=== PATIENT | male | born 1950 | race African-American/Black ===

== ENCOUNTER 2019-10-27 11:08 | Inpatient (IN) | payer MEDICARE, OTHER ==
[~2019-10-27] VITALS: Ht 177.8 cm; Wt 73.2 kg
[2019-10-27 12:50] LABS: BASOPHILS % 0.6 % (0.0-2.0); EOSINOPHILS % 1.2 % (0.0-5.0); HEMATOCRIT. 39.7 % (42.0-52.0); HEMOGLOBIN. 13.9 g/dL (14.0-18.0); LYMPHOCYTES % 22.3 % (20.0-50.0); MEAN CORPUSCULAR HEMOGLOBIN 28.3 pg (28.0-32.0); MEAN CORPUSCULAR VOLUME 80.9 fL (80.0-94.0); MEAN PLATELET VOLUME 7.4 fl (7.4-10.4); MONOCYTES % 7.1 % (2.0-8.0); NEUTROPHILS % 68.8 % (40.0-76.0); PLATELET 315 x1000/uL (130-400); RED CELL DISTRIBUTION WIDTH 13.9 % (11.6-14.6)
[2019-10-27 12:56] LABS: CHLORIDE 103 mEq/L (98-107)
[2019-10-28] MEDS ORDERED: ALBUTEROL (0.083%) 2.5MG/3ML NEB HHN STA (10:20)
[2019-10-28] MEDS ORDERED: METHYLPREDNISOLONE SOD SUCC 125 MG/2 ML VIAL IV STA (10:20)
[2019-10-28 13:30] VITALS: BP 118/83
[2019-10-28] MEDS ORDERED: ONDANSETRON HCL 4MG/2ML INJ IV PRN (15:45)
[2019-10-28] MEDS ORDERED: MAGNESIUM/ALUMINUM HYDROXIDE/SIMETHICONE 30ML UDC PO PRN (15:45)
[2019-10-28] MEDS ORDERED: LORAZEPAM 2MG/ML CPJ IV PRN (15:45)
[2019-10-28] MEDS ORDERED: IPRATROPIUM/ALBUTEROL 0.5-3(2.5)MG/3ML NEB NEB PRN (15:45)
[2019-10-28] MEDS ORDERED: ACETAMINOPHEN 325MG TABLET PO PRN (15:45)
[2019-10-28] MEDS ORDERED: DIPHENHYDRAMINE 50MG/ML VIAL IV PRN (15:45)
[2019-10-28] MEDS ORDERED: CLONIDINE 0.1MG TABLET PO PRN (15:45)
[2019-10-28 16:13] VITALS: BP 139/54
[2019-10-28 20:00] VITALS: BP 144/92
[2019-10-28] MEDS: SODIUM CHLORIDE 0.9% INJ 3ML FLUSH IVF SCH (21:23)
[2019-10-29] VITALS: BP_SYST 152; BP_SYST 160; BP_DIAS 96; BP_DIAS 98
[2019-10-29 04:00] VITALS: BP 156/87
[2019-10-29 06:16] LABS: BASOPHILS % 0.7 % (0.0-2.0); EOSINOPHILS % 0.6 % (0.0-5.0); HEMATOCRIT. 40.4 % (42.0-52.0); LYMPHOCYTES % 20.3 % (20.0-50.0); MEAN CORPUSCULAR HEMOGLOBIN 27.9 pg (28.0-32.0); MEAN CORPUSCULAR VOLUME 80.4 fL (80.0-94.0); MEAN PLATELET VOLUME 7.7 fl (7.4-10.4); MONOCYTES % 6.7 % (2.0-8.0); NEUTROPHILS % 71.7 % (40.0-76.0); PLATELET 320 x1000/uL (130-400); RED BLOOD CELL COUNT 5.03 mill/uL (4.7-6.1); RED CELL DISTRIBUTION WIDTH 13.7 % (11.6-14.6)
[2019-10-29] MEDS: SODIUM CHLORIDE 0.9% INJ 3ML FLUSH IVF SCH ×3 (06:36→21:46)
[2019-10-29 06:48] LABS: VITAMIN B12 SERUM 1001 pg/mL (211-911)
[2019-10-29 08:00] VITALS: BP 116/76
[2019-10-29 13:06] LABS: CHLORIDE 99 mEq/L (98-107)
[2019-10-29 18:52] VITALS: BP 130/82
[2019-10-29 20:00] VITALS: BP 134/83
[2019-10-30] VITALS: BP 114/75
[2019-10-30 04:00] VITALS: BP 110/70
[2019-10-30] MEDS: SODIUM CHLORIDE 0.9% INJ 3ML FLUSH IVF SCH ×3 (05:03→21:02)
[2019-10-30 10:47] VITALS: BP 129/75
[2019-10-30 12:00] VITALS: BP 125/79
[2019-10-30 16:00] VITALS: BP 131/83
[2019-10-30] MEDS ORDERED: LORAZEPAM 0.5MG TABLET PO PRN (16:45)
[2019-10-30] MEDS: QUETIAPINE FUMARATE 50MG TABLET PO SCH (17:05)
[2019-10-30 20:00] VITALS: BP 144/89
[2019-10-31] VITALS: BP 134/96
[2019-10-31] MEDS: SODIUM CHLORIDE 0.9% INJ 3ML FLUSH IVF SCH ×3 (03:15→22:00)
[2019-10-31] MEDS: QUETIAPINE FUMARATE 50MG TABLET PO SCH ×2 (10:17→22:20)
[2019-10-31 20:00] VITALS: BP 114/77
[2019-11-01] VITALS: BP 107/71
[2019-11-01 04:00] VITALS: BP 109/70
[2019-11-01 08:00] VITALS: BP 118/75
[2019-11-01] MEDS: QUETIAPINE FUMARATE 50MG TABLET PO SCH ×2 (10:05→22:11)
[2019-11-01 12:00] VITALS: BP 122/76
[2019-11-01] MEDS: SODIUM CHLORIDE 0.9% INJ 3ML FLUSH IVF SCH ×2 (14:00→22:00)
[2019-11-01 16:00] VITALS: BP 109/73
[2019-11-01 20:00] VITALS: BP 125/80
[2019-11-02 00:18] VITALS: BP_SYST 110; BP_SYST 178; BP_DIAS 66; BP_DIAS 90
[2019-11-02] MEDS: SODIUM CHLORIDE 0.9% INJ 3ML FLUSH IVF SCH ×3 (01:54→22:00)
[2019-11-02 04:00] VITALS: BP 105/63
[2019-11-02 08:00] VITALS: BP 132/77
[2019-11-02] MEDS: QUETIAPINE FUMARATE 50MG TABLET PO SCH ×2 (08:52→20:17)
[2019-11-02 12:00] VITALS: BP 105/68
[2019-11-02 16:00] VITALS: BP 117/70
[2019-11-02 20:00] VITALS: BP 142/94
[2019-11-03] VITALS: BP 119/85
[2019-11-03 04:00] VITALS: BP 144/94
[2019-11-03] MEDS: SODIUM CHLORIDE 0.9% INJ 3ML FLUSH IVF SCH ×3 (05:08→22:00)
[2019-11-03 08:00] VITALS: BP 132/79
[2019-11-03] MEDS: QUETIAPINE FUMARATE 50MG TABLET PO SCH ×2 (09:17→20:24)
[2019-11-03 12:00] VITALS: BP 129/70
[2019-11-03 16:00] VITALS: BP 122/70
[2019-11-04] VITALS: BP 139/73
[2019-11-04] MEDS: SODIUM CHLORIDE 0.9% INJ 3ML FLUSH IVF SCH ×3 (06:00→22:00)
[2019-11-04] MEDS: QUETIAPINE FUMARATE 50MG TABLET PO SCH ×2 (08:56→21:45)
[2019-11-04 12:00] VITALS: BP 132/88
[2019-11-05] VITALS: BP 125/73
[2019-11-05 04:00] VITALS: BP 121/72
[2019-11-05] MEDS: SODIUM CHLORIDE 0.9% INJ 3ML FLUSH IVF SCH ×3 (06:00→14:05)
[2019-11-05 08:00] VITALS: BP_SYST 122; BP_SYST 134; BP_DIAS 81; BP_DIAS 90
[2019-11-05] MEDS: QUETIAPINE FUMARATE 50MG TABLET PO SCH ×2 (09:42→22:38)
[2019-11-05 12:00] VITALS: BP 122/81
[2019-11-05 16:00] VITALS: BP 116/79
[2019-11-05 20:00] VITALS: BP 133/69
[2019-11-06] VITALS: BP 116/82
[2019-11-06 04:00] VITALS: BP 122/76
[2019-11-06 08:00] VITALS: BP 120/86
[2019-11-06] MEDS: QUETIAPINE FUMARATE 50MG TABLET PO SCH ×2 (08:09→20:36)
[2019-11-06 12:00] VITALS: BP 129/77
[2019-11-06 16:00] VITALS: BP 116/73
[2019-11-06 20:00] VITALS: BP 132/85
[2019-11-06] MEDS: SODIUM CHLORIDE 0.9% INJ 3ML FLUSH IVF SCH (22:04)
[2019-11-07] VITALS: BP 136/81
[2019-11-07 04:00] VITALS: BP 128/86
[2019-11-07] MEDS: SODIUM CHLORIDE 0.9% INJ 3ML FLUSH IVF SCH ×3 (05:28→22:00)
[2019-11-07 08:00] VITALS: BP 140/92
[2019-11-07] MEDS: QUETIAPINE FUMARATE 50MG TABLET PO SCH ×2 (08:00→20:14)
[2019-11-07 12:00] VITALS: BP 125/87
[2019-11-07 16:00] VITALS: BP 137/88
[2019-11-07 20:00] VITALS: BP 151/89
[2019-11-08] VITALS: BP 141/71
[2019-11-08 04:00] VITALS: BP 153/81
[2019-11-08] MEDS: SODIUM CHLORIDE 0.9% INJ 3ML FLUSH IVF SCH ×3 (06:00→22:00)
[2019-11-08 08:00] VITALS: BP 135/67
[2019-11-08] MEDS: QUETIAPINE FUMARATE 50MG TABLET PO SCH ×2 (08:32→21:15)
[2019-11-08 12:00] VITALS: BP 130/65
[2019-11-08 20:00] VITALS: BP 165/87
[2019-11-09] VITALS: BP 121/69
[2019-11-09 04:00] VITALS: BP 134/93
[2019-11-09] MEDS: SODIUM CHLORIDE 0.9% INJ 3ML FLUSH IVF SCH ×3 (06:00→21:18)
[2019-11-09 08:00] VITALS: BP 112/70
[2019-11-09] MEDS: QUETIAPINE FUMARATE 50MG TABLET PO SCH ×2 (08:01→21:17)
[2019-11-09 12:00] VITALS: BP 127/82
[2019-11-09 16:00] VITALS: BP 123/83
[2019-11-09 20:00] VITALS: BP_SYST 120; BP_SYST 139; BP_DIAS 69; BP_DIAS 93
[2019-11-10] VITALS: BP 125/79
[2019-11-10 04:00] VITALS: BP 106/72
[2019-11-10] MEDS: SODIUM CHLORIDE 0.9% INJ 3ML FLUSH IVF SCH ×3 (06:00→22:00)
[2019-11-10 08:00] VITALS: BP 136/88
[2019-11-10] MEDS: QUETIAPINE FUMARATE 50MG TABLET PO SCH ×2 (09:00→21:21)
[2019-11-10 12:00] VITALS: BP 126/88
[2019-11-10 16:00] VITALS: BP 125/83
[2019-11-10 20:00] VITALS: BP 131/88
[2019-11-11] MEDS: SODIUM CHLORIDE 0.9% INJ 3ML FLUSH IVF SCH ×3 (06:26→21:27)
[2019-11-11 08:00] VITALS: BP 135/98
[2019-11-11] MEDS: QUETIAPINE FUMARATE 50MG TABLET PO SCH ×2 (08:45→21:26)
[2019-11-11 12:00] VITALS: BP 128/86
[2019-11-11 12:57] LABS: BASOPHILS % 0.9 % (0.0-2.0); EOSINOPHILS % 2.9 % (0.0-5.0); HEMATOCRIT. 41.5 % (42.0-52.0); HEMOGLOBIN. 14.3 g/dL (14.0-18.0); LYMPHOCYTES % 30.9 % (20.0-50.0); MEAN CORPUSCULAR VOLUME 81.6 fL (80.0-94.0); MEAN PLATELET VOLUME 7.5 fl (7.4-10.4); MONOCYTES % 8.9 % (2.0-8.0); NEUTROPHILS % 56.4 % (40.0-76.0); PLATELET 223 x1000/uL (130-400); RED BLOOD CELL COUNT 5.09 mill/uL (4.7-6.1); RED CELL DISTRIBUTION WIDTH 13.6 % (11.6-14.6)
[2019-11-11 13:07] LABS: CHLORIDE 100 mEq/L (98-107)
[2019-11-11 13:16] LABS: PHOSPHORUS 3.1 mg/dL (2.5-4.9)
[2019-11-11 16:00] VITALS: BP 130/88
[2019-11-11 20:00] VITALS: BP 131/85
[2019-11-12] VITALS: BP 122/66
[2019-11-12] MEDS: SODIUM CHLORIDE 0.9% INJ 3ML FLUSH IVF SCH (05:17)
[2019-11-12] MEDS: QUETIAPINE FUMARATE 50MG TABLET PO SCH ×2 (09:54→20:08)
[2019-11-12 20:00] VITALS: BP 130/85
[2019-11-13] VITALS: BP 118/72
[2019-11-13 04:00] VITALS: BP 118/74
[2019-11-13 08:00] VITALS: BP 116/81
[2019-11-13] MEDS: QUETIAPINE FUMARATE 50MG TABLET PO SCH ×2 (08:41→20:37)
[2019-11-13 12:00] VITALS: BP 117/80
[2019-11-13 16:00] VITALS: BP 130/81
[2019-11-13 20:00] VITALS: BP 138/83
[2019-11-14] VITALS: BP 130/87
[2019-11-14 04:00] VITALS: BP 103/53
[2019-11-14 08:00] VITALS: BP 131/82
[2019-11-14] MEDS: QUETIAPINE FUMARATE 50MG TABLET PO SCH ×2 (08:06→21:02)
[2019-11-14 12:00] VITALS: BP 88/56
[2019-11-14 16:00] VITALS: BP 120/72
[2019-11-14 20:00] VITALS: BP 133/85
[2019-11-14] MEDS: SODIUM CHLORIDE 0.9% INJ 3ML FLUSH IVF SCH (21:02)
[2019-11-15] VITALS: BP 126/80
[2019-11-15 04:00] VITALS: BP 119/72
[2019-11-15] MEDS: SODIUM CHLORIDE 0.9% INJ 3ML FLUSH IVF SCH (05:14)
[2019-11-15 08:00] VITALS: BP 117/74
[2019-11-15] MEDS: QUETIAPINE FUMARATE 50MG TABLET PO SCH (08:19)
[2019-11-15 12:00] VITALS: BP 114/66
[2019-11-15 16:00] VITALS: BP 116/71
[2019-11-15 16:39] VITALS: BP 114/66
== END 2019-11-15 18:41 | DRG 71 ==
LOC: ER 11:20 → 6WST 10-28 11:25 → ENRESERV 10-28 12:35 → 6EST 10-31 01:16
PROVIDERS: ADMIT Internal Medicine; ATTEND Internal Medicine
DX: G93.41 Metabolic encephalopathy (principal); E87.1 Hypo-osmolality and hyponatremia; I10 Essential (primary) hypertension; R41.89 Other symptoms and signs involving cognitive functions and awareness; F09 Unspecified mental disorder due to known physiological condition; F10.10 Alcohol abuse, uncomplicated; F32.9 Major depressive disorder, single episode, unspecified; J44.9 Chronic obstructive pulmonary disease, unspecified; R62.7 Adult failure to thrive; Z68.23 Body mass index [BMI] 23.0-23.9, adult; Z98.2 Presence of cerebrospinal fluid drainage device; Z82.5 Family history of asthma and other chronic lower respiratory diseases; Z87.891 Personal history of nicotine dependence
CPT/HCPCS: 36415; 70551; 71045; 80053; 82607; 83735; 83880; 84100; 84443; 84484; 85025; 93005; 96374; 97110; 97162; 97166; 97530; 99285; C1893; J2930; A4315